=== PATIENT | female | born 1965 | race Caucasian/White ===

== ENCOUNTER 2016-09-25 16:08 | Emergency (ER) | payer SELFPAY ==
[~2016-09-25] VITALS: Ht 165.1 cm; Wt 56.5 kg
[2016-09-25 16:10] VITALS: BP 132/78; PULSE 100; RESP 20; TEMP 97.7; O2SAT 100
--- NOTE | 2016-09-25 16:14 | PD ---
Physical Exam Time Seen by Provider: 16:12 Narrative 51 year old female with lower back pain, radiates, down left leg "for years," worsened since less night. Denies any new injury. Denies incontinence, saddle anesthesia. VSS Seen at triage desk, awaiting bed placement. Data Data Last Documented VS Vital Signs Date Time Temp Pulse Resp B/P Pulse Ox O2 Delivery O2 Flow Rate FiO2 09/25/16 16:10 97.7 100 20 132/78 100 Room Air [facility] Medical Record Reviewed: Yes Supervised Visit with MILADYS: Yes Chucho Sharp Sep 25, 2016 16:14
[2016-09-25] MEDS ORDERED: IBUP800T23 PO (16:29)
[2016-09-25] MEDS ORDERED: ROBA500T PO (16:29)
[2016-09-25] MEDS ORDERED: OXYC1TAB13 PO (16:34)
--- NOTE | 2016-09-25 16:40 | PD ---
HPI Chief Complaint: Back/ Neck Pain or Injury Time Seen by Provider: 16:35 Travel History International Travel<30 days: No Contact w/Intl Traveler<30days: No Traveled to known affect area: No History of Present Illness HPI 51-year-old female presents to the emergency department requesting pain medication for her chronic low back pain for approximately 20 years ago. She denies new or recent injury. Reports sciatica down the back of her left leg. She does have a nerve stimulator implanted in her lower left back and she says it doesn't work anymore. She has Roxicodone for pain. She says she only has 2 left and needs a refill. She denies encopresis, incontinence, saddle anesthesias. Denies paresthesias, loss of sensation, decreased range of motion , decreased strength to bilateral lower extremity. Denies IV drug use. Denies cancer. Denies abdominal pain, fever, chills, nausea, vomiting. Denies dysuria , hematuria, urgency, frequency. Allergies to sulfa. Does not have an established primary care provider. Has no other medical complaint. No other modifying factors or associated signs and symptoms. Allergies-Medications (Allergen,Severity, Reaction): Coded Allergies: Sulfa (Verified Allergy, Severe, HIVES, 09/25/16) Review of Systems Except as stated in HPI: all other systems reviewed are Neg Physical Exam Narrative GENERAL: Well-nourished, well-developed female patient, in no acute distress; afebrile, nontoxic-appearing SKIN: Warm and dry. Left lower back with implanted device noted. HEAD: Atraumatic. Normocephalic. EYES: Pupils equal and round. No scleral icterus. No injection or drainage. ENT: Mucosa pink and moist. Airway patent. NECK: Trachea midline. CARDIOVASCULAR: Regular rate. RESPIRATORY: No accessory muscle use. GASTROINTESTINAL: Round. MUSCULOSKELETAL: Bilateral lower extremities supple and non-tense with 2+ pedal pulses and sensory intact; with full range of motion and 5/5 strength. 2 + DTRs bilaterally.. Active dorsiflexion and extension of bilateral feet. Bilateral straight leg raise is negative for low back pain. Ambulatory with normal gait. Sitting up in bed at 90. No obvious deformities. No clubbing. No cyanosis. No edema. BACK: No CVA tenderness. No midline point tenderness on palpation of the lumbar spine. Tenderness on palpation of left iliosacral area. No obvious deformities. NEUROLOGICAL: Awake and alert. Oriented 3. No obvious cranial nerve deficits. Motor grossly within normal limits. Normal speech. Moves all extremities. 5/5 strength to all extremities. Sensory intact. PSYCHIATRIC: Appropriate mood and affect; insight and judgment normal. Data Data Last Documented VS Vital Signs Date Time Temp Pulse Resp B/P Pulse Ox O2 Delivery O2 Flow Rate FiO2 09/25/16 16:10 97.7 100 20 132/78 100 Room Air [facility] Medical Screen Exam Complete: Yes Emergency Medical Condition: No Differential Diagnosis Narcotic seeking, chronic low back pain, sciatica Narrative Course 51-year-old female with chronic low back pain and left-sided sciatica. Denies new or recent injury. Patient has a nerve stimulator implanted in the left lower back. She has Roxicodone for pain. She is requesting a prescription refill for Roxicodone since she has 2 pills left. Denies encopresis, incontinence, saddle anesthesias. Patient is ambulatory in the room with normal gait. No midline point tenderness on palpation of the lumbar spine. Denies IV drug use, cancer. Vital signs are stable and the patient is stable for outpatient follow-up and treatment. The patient has no urgent or emergent medical complaints. There is no emergent or urgent medical need at this time. I instructed the patient to follow up with their primary care provider. A medical screening exam was performed: At the time of evaluation the presenting medical condition was determined not to be of an emergent nature. The patient was given the option of receiving additional care, but declined. Patient was given options for additional community resources from which to obtain care. The Patient Has Been advised to seek medical attention for their presenting complaint. The patient has been advised to return to the ER at any time if an emergent condition develops. Primary Impression: Encounter for medical screening examination Scripts Ibuprofen 800 Mg [id number] Mg PO Q6HR PRN (PAIN) #30 TAB Ref 0 Prov:Lili MuñozP 09/25/16 Methocarbamol (Robaxin)500 Mg [id number] Mg PO QID PRN (MUSCLE SPASM) #30 TAB Ref 0 Prov:Lili MuñozP 09/25/16 Condition: Stable Lili Muñoz Sep 25, 2016 16:40
== END 2016-09-25 16:49 | disposition left against medical advice (07) ==
LOC: NEPK 16:08
DX: M54.42 Lumbago with sciatica, left side (principal); G89.29 Other chronic pain
CPT/HCPCS: 99281